=== PATIENT | male | born 1965 | race Caucasian/White ===

== ENCOUNTER 2019-05-01 15:40 | Emergency (ER) | payer BC ==
[~2019-05-01 15:40] MED LIST: EPINEPHrine 10 ML SYRINGE (0.1 MG/ML) ONE; SODIUM BICARB 8.4% 50 ML SYR (1 MEQ/ML) ONE
[2019-05-01] MEDS ORDERED: EPINEPHrine 10 ML SYRINGE (0.1 MG/ML) ONE (16:02)
[2019-05-01] MEDS ORDERED: EPINEPHrine 4 MG in DEXTROSE 5% IN WATER 250 ML IV ONE ×2 (16:15)
[2019-05-01 16:22] LABS: Glucose,Whole Blood 69 mg/dL (75-99)
--- NOTE | 2019-05-01 16:49 | ED ---
CPR HPI - General Stated Complaint: unresponsive Time Seen by Provider: 05/01/19 15:41 - History of Present Illness Initial Comments: Patient is a 53-year-old male with no known previous medical history who presents via EMS, priority one is a CPR in progress. According to EMS, the patient was awake and responsive on arrival. While in transport, they lost pulses and began CPR. On arrival to the emergency department, the patient did not have pulses, he was apneic, and unresponsive. EMS states that he had not been feeling well today, he was outside doing yardwork initially and went inside afterwards stating that he had abdominal pain and lower back pain. - Related Data Allergies Allergy/AdvReac Type Severity Reaction Status Date / Time Unable to Assess Allergy Verified 05/01/19 16:52 Review of Systems ROS Statement: Those systems with pertinent positive or pertinent negative responses have been documented in the HPI. ROS Other: All systems not noted in ROS Statement are negative. Limitations: ROS unobtainable due to patients medical condition General Exam General appearance: other (unresponsive, apneaic, appears pale ) Head exam: Present: atraumatic, normocephalic Eye exam: Absent: PERRL ENT exam: Present: normal exam, other (vomitus in the oropharynx ) Neck exam: Present: normal inspection Respiratory exam: Present: other (patient is apneic. bilateral breath sounds after intubation, decreased and roncherous bilaterally. ) Cardiovascular Exam: Present: other (pulseless, appears pale. ) GI/Abdominal exam: Present: distended Rectal exam: Present: deferred exam: Present: normal inspection Extremities exam: Present: normal inspection Neurological exam: Present: other (unresponsive, pupils fixed and dilated. ). Absent: alert, oriented X3 Skin exam: Present: cyanosis, pallor, mottled Course Vital Signs 05/01/19 15:40 Temperature 97 F L Pulse Rate 0 L Respiratory 0 L Rate Blood Pressure 00/00 O2 Sat by Pulse 0 L Oximetry Procedures - Intubation Laryngoscope: Briseida Size: 4 ET Tube Size: 8 ET Tube Uncuffed: No Tube Secured Location: lips Tube Placement Confirmation: visualized tube passing through cords, equal breath sounds bilaterally, no breath sounds over epigastrium, confirmation by capnometry Patient Tolerated Procedure: well Intubation Complications: difficult intubation Additional Comments: vomitus in airway. successful 1 attempt with Mac 4 an 8.0 ET tube. secured 24 cm at the lip. + color change, EtCO2 and pulse ox. Medical Decision Making - Medical Decision Making Patient is a 53-year-old male with no previous medical history who presents via EMS in cardiac arrest. CPR and resuscitation continued per ACLS protocol. In the ED, patient was given 10 rounds of epinephrine with 2 amps of bicarb. Please refer to code recorder note for further detail regarding interventions. at one point, ROSC was achieved but ultimately patient lost pulses again. EKG showed a wide QRS complex rhythm with a RBBB. ST segment elevation noted suspect for posterior MS. Case discussed with interventional cardiology who only recommended geoscience laboratory technician if patient was able to be stabilized. ultimately, resuscitative efforts were discontinued at 1628. patient remained in PEA on the monitor with no organized cardiac activity on bedside ultrasound. I spoke with the family and updated them on the patients condition. I spoke with [facility] [place] [facility], who requests that the patient be transferred to the [facility] with all of the available records. she will evaluated the patient and discuss further with the family. - Lab Data Lab Results 05/01/19 Range/Units 16:01 POC Glucose (mg/dL) 69 L (75-99) mg/dL POC Glu Finish Machine Tender ID Jeremiah Cooper Disposition Clinical Impression: Cardiac arrest Disposition: Is patient prescribed a controlled substance at d/c from ED?: No Referrals: None,Stated [Primary Care Provider] - 1-2 days Preliminary Cause of : cardiopulmonary arrest
[2019-05-01 16:52] VITALS: BP 00/00; PULSE 0; RESP 0; TEMP 97
== END 2019-05-01 20:10 | disposition expired ==
LOC: EC 15:40
DX: I46.9 Cardiac arrest, cause unspecified (principal)
CPT/HCPCS: 36415; 86900; 86901; 86850; 86920; 99285; 31500; 92950; P9016; J0171